=== PATIENT | male | born 1955 | race Caucasian/White ===

== ENCOUNTER → 2021-10-30 | Outpatient (RCR) | payer MEDICARE, BC | LOC: PT 10-24 15:55 | PROVIDERS: ATTEND Physician Assistant | DX: S46.812A Strain of other muscles, fascia and tendons at shoulder and upper arm level, left arm, initial encounter (principal) ==

== ENCOUNTER 2021-11-21 11:00 | Outpatient (RCR) | payer MEDICARE, BC | END 2021-11-27 | LOC: PT 11:00 | PROVIDERS: ATTEND Physician Assistant | DX: S46.812A Strain of other muscles, fascia and tendons at shoulder and upper arm level, left arm, initial encounter (principal) ==

== ENCOUNTER 2021-12-08 11:00 | Outpatient (RCR) | payer MEDICARE, BC | END 2021-12-28 | LOC: PT 11:00 | PROVIDERS: ATTEND Physician Assistant | DX: S46.812A Strain of other muscles, fascia and tendons at shoulder and upper arm level, left arm, initial encounter (principal) ==